=== PATIENT | male | born 1975 | race Caucasian/White ===

== ENCOUNTER 2016-10-15 09:38 | Emergency (ER) | payer MEDICARE ==
[2016-10-15 10:16] LABS: ABSOLUTE BASOPHILS # (AUTO) 0.1 10^3/uL (0.0-0.2); ABSOLUTE EOSINOPHILS # (AUTO) 0.3 10^3/uL (0.0-0.6); ABSOLUTE LYMPHOCYTES (AUTO) 0.9 10^3/uL (0.5-4.7); ABSOLUTE MONOCYTES (AUTO) 1.5 10^3/uL (0.1-1.4); ABSOLUTE NEUT (AUTO) 7.7 10^3/uL (1.7-8.2); BASOPHILS % (AUTO) 0.6 % (0-2); EOSINOPHILS % (AUTO) 2.4 % (0-6); HEMATOCRIT 41.7 % (37.9-51.0); HEMOGLOBIN 14.1 g/dL (13.5-17.0); HGB HCT DIFFERENCE 0.6; LYMPHOCYTES % (AUTO) 8.9 % (13-45); MEAN CORPUSCULAR HEMOGLOBIN 28.1 pg (27.0-33.4); MEAN CORPUSCULAR HGB CONC 33.7 g/dL (32.0-36.0); MEAN CORPUSCULAR VOLUME 83 fl (80-97); MONOCYTES % (AUTO) 14.3 % (3-13); RED CELL DISTRIBUTION WIDTH 16.4 % (11.5-14.0); SEGMENTED NEUTROPHILS % (AUTO) 73.8 % (42-78); WHITE BLOOD COUNT 10.5 10^3/uL (4.0-10.5)
[2016-10-15 10:18] LABS: VENOUS BLOOD BASE EXCESS 0.8 mmol/L; VENOUS BLOOD HCO3 25.3 mmol/L (20-32); VENOUS BLOOD PCO2 40.3 mmHg (35-63); VENOUS BLOOD PH 7.42 (7.30-7.42)
[2016-10-15 10:25] LABS: ALANINE AMINOTRANSFERASE 40 U/L (21-72); ALBUMIN 3.7 g/dL (3.5-5.0); ALKALINE PHOSPHATASE 118 U/L (38-126); ANION GAP 16 (5-19); ASPARTATE AMINO TRANSFERASE 22 U/L (17-59); BILIRUBIN,DIRECT 0.2 mg/dL (0.0-0.4); BILIRUBIN,TOTAL 0.7 mg/dL (0.2-1.3); BLOOD UREA NITROGEN 18 mg/dL (7-20); CARBON DIOXIDE 22 mmol/L (22-30); CHLORIDE 106 mmol/L (98-107); CREATININE RESULT 0.56 mg/dL (0.52-1.25); GLUCOSE 95 mg/dL (75-110); POTASSIUM 4.2 mmol/L (3.6-5.0); SODIUM 144.3 mmol/L (137-145); TOTAL PROTEIN 6.4 g/dL (6.3-8.2)
--- NOTE | 2016-10-15 11:26 | ER Document Report ---
ED General - General Chief Complaint: Respiratory Distress Stated Complaint: RESPIRATORY DISTRESS Mode of Arrival: Ambulatory Information source: Patient Notes: 41-year-old male trached presents with complaints of family with rest her distress to fever thick sputum from trach. Patient has had multiple similar episodes in past was admitted last week with similar complaints. notes that after one breathing treatment patient looks much better is in no distress at this time TRAVEL OUTSIDE OF THE [place] IN LAST 30 DAYS: No - HPI Onset: Just prior to arrival Onset/Duration: Sudden Quality of pain: No pain Severity: Mild Pain Level: Denies Associated symptoms: Productive cough, Fever Exacerbated by: Denies Relieved by: Denies Similar symptoms previously: Yes Recently seen / treated by doctor: Yes - Related Data Allergies/Adverse Reactions: ceftazidime pentahydrate [From Fortaz] Allergy (Intermediate, Verified 09/25/16 01:10) Exanthematic Eruption prednisone Allergy (Mild, Verified 09/26/16 14:52) Generalized rash Penicillins Allergy (Verified 09/25/16 01:10) phenytoin sodium extended [From Dilantin] Allergy (Verified 09/25/16 01:10) Past Medical History - Social History Smoking Status: Never Smoker Cigarette use (# per day): No Chew tobacco use (# tins/day): No Smoking Education Provided: No Family History: Reviewed & Not Pertinent Pulmonary Medical History: Reports: Hx Pneumonia Neurological Medical History: Reports: Hx Seizures Psychiatric Medical History: Denies: Hx Depression Traumatic Medical History: Reports: Hx Traumatic Brain Injury Past Surgical History: Reports: Hx Abdominal Surgery - G-tube, Other - Trach - Immunizations Hx Diphtheria, Pertussis, Tetanus Vaccination: Yes Hx Pneumococcal Vaccination: 07/18/13 Review of Systems - Review of Systems Notes: REVIEW OF SYSTEMS: Per family CONSTITUTIONAL : Admits recent illness admits fever EENT: Denies eye, ear, throat, or mouth pain or symptoms. Denies nasal or sinus congestion or discharge. Denies throat, tongue, or mouth swelling or difficulty swallowing. CARDIOVASCULAR: Denies chest pain. Denies palpitations or racing or irregular heart beat. Denies ankle edema. RESPIRATORY: Admits to difficulty breathing thick sputum from trach GASTROINTESTINAL: Denies abdominal pain or distention. Denies nausea, vomiting , or diarrhea. Denies blood in vomitus, stools, or per rectum. Denies black, tarry stools. Denies constipation. GENITOURINARY: Denies difficulty urinating, painful urination, burning, frequency, blood in urine, or discharge. MUSCULOSKELETAL: Denies back or neck pain or stiffness. Denies joint pain or swelling. SKIN: Denies rash, lesions or sores. HEMATOLOGIC : Denies easy bruising or bleeding. LYMPHATIC: Denies swollen, enlarged glands. NEUROLOGICAL: Denies confusion or altered mental status. Denies passing out or loss of consciousness. Denies dizziness or lightheadedness. Denies headache. Denies weakness or paralysis or loss of use of either side. Denies problems with gait or speech. Denies sensory loss, numbness, or tingling. Denies seizures. PSYCHIATRIC: Denies anxiety or stress. Denies depression, suicidal ideation, or homicidal ideation. ALL OTHER SYSTEMS REVIEWED AND NEGATIVE. Dictation was performed using [employer] voice recognition software PHYSICAL EXAMINATION: GENERAL: Baseline appearance febrile HEAD: Atraumatic, normocephalic. EYES: Pupils equal round and reactive to light, extraocular movements intact, sclera anicteric, conjunctiva are normal. ENT: Nares patent, oropharynx clear without exudates. Moist mucous membranes. NECK: Normal range of motion, supple without lymphadenopathy LUNGS: Trachea in place coarse expiratory wheezing all throughout HEART: Regular rate and rhythm without murmurs ABDOMEN: Soft, nontender, nondistended abdomen. No guarding, no rebound. No masses appreciated. Musculoskeletal: Normal range of motion, no pitting or edema. No cyanosis. NEUROLOGICAL: Baseline neurological function PSYCH: Baseline the fact SKIN: Warm, Dry, normal turgor, no rashes or lesions noted. Physical Exam - Vital signs Vitals: Resp Pulse Ox 21 H 96 10/15/16 09:43 10/15/16 09:43 Course - Re-evaluation Re-evalutation: 10/15/16 11:25 Patient is noted to be febrile, I have asked respiratory to evaluate his trach. Lab work imaging are pending to rule out pneumonia 10/15/16 12:17 X-ray noted no acute abnormality, sputum cultures pending. Otherwise patient looks well family's very happy with discharge. I will discharge home with antibiotics given the fever After performing a Medical Screening Examination, I estimate there is LOW risk for ACUTE CORONARY SYNDROME, RESPIRATORY FAILURE, SEPSIS OR MENINGITIS, thus I consider the discharge disposition reasonable. The patient and I have discussed the diagnosis and risks, and we agree with discharging home with close follow-up. We also discussed returning to the Emergency Department immediately if new or worsening symptoms occur. We have discussed the symptoms which are most concerning (e.g., changing or worsening pain, trouble swallowing or breathing, neck stiffness, fever) that necessitate immediate return. - Vital Signs Vital signs: Temp Pulse Resp BP Pulse Ox 101.1 F H 25 H 102/72 96 10/15/16 10:08 10/15/16 10:01 10/15/16 10:00 10/15/16 10:01 - Laboratory Result Diagrams: 10/15/16 09:55 10/15/16 09:55 Laboratory results interpreted by me: 10/15/16 09:55 RDW 16.4 H Plt Count 132 L Lymphocytes % 8.9 L Monocytes % 14.3 H Absolute Monocytes 1.5 H - Diagnostic Test Radiology reviewed: Image reviewed, Reports reviewed Discharge - Discharge Clinical Impression: Acute tracheobronchitis Condition: Stable Disposition: HOME, SELF-CARE Additional Instructions: Sputum cultures are pending, return immediately if there is any worsening symptoms or any other concerns Prescriptions: Levofloxacin [Levaquin 750 mg Tablet] 750 mg PO DAILY #10 tablet
[2016-10-15 13:50] VITALS: BP 84/65
--- NOTE | 2016-10-15 21:59 | EKG REPORT ---
SEVERITY:- BORDERLINE ECG - SINUS RHYTHM BORDERLINE T ABNORMALITIES, INFERIOR LEADS : Confirmed by: Domitila Turpin 15-Oct-2016 21:59:02
== END 2016-10-15 13:50 | disposition home or self-care (01) ==
LOC: ER 09:38
DX: J20.9 Acute bronchitis, unspecified (principal); Z93.0 Tracheostomy status; R50.9 Fever, unspecified; R05 Cough; R06.00 Dyspnea, unspecified; Z88.1 Allergy status to other antibiotic agents; Z88.8 Allergy status to other drugs, medicaments and biological substances; Z88.0 Allergy status to penicillin; Z87.01 Personal history of pneumonia (recurrent)
CPT/HCPCS: 36415; 71010; 80053; 82803; 83605; 85025; 87040; 87070; 87205; 93005; 93010; 99285

== ENCOUNTER → 2016-12-23 | Outpatient (CLI) | payer MEDICARE, MEDICAID ==
[2016-12-23 13:05] LABS: ABSOLUTE BASOPHILS # (AUTO) 0.1 10^3/uL (0.0-0.2); ABSOLUTE EOSINOPHILS # (AUTO) 0.4 10^3/uL (0.0-0.6); ABSOLUTE LYMPHOCYTES (AUTO) 2.9 10^3/uL (0.5-4.7); ABSOLUTE MONOCYTES (AUTO) 0.9 10^3/uL (0.1-1.4); ABSOLUTE NEUT (AUTO) 6.1 10^3/uL (1.7-8.2); BASOPHILS % (AUTO) 0.9 % (0-2); EOSINOPHILS % (AUTO) 3.5 % (0-6); HEMATOCRIT 44.6 % (37.9-51.0); HEMOGLOBIN 14.6 g/dL (13.5-17.0); HGB HCT DIFFERENCE -0.8; LYMPHOCYTES % (AUTO) 27.7 % (13-45); MEAN CORPUSCULAR HEMOGLOBIN 28.7 pg (27.0-33.4); MEAN CORPUSCULAR HGB CONC 32.8 g/dL (32.0-36.0); MEAN CORPUSCULAR VOLUME 87 fl (80-97); MONOCYTES % (AUTO) 9.2 % (3-13); RED CELL DISTRIBUTION WIDTH 15.6 % (11.5-14.0); SEGMENTED NEUTROPHILS % (AUTO) 58.7 % (42-78); WHITE BLOOD COUNT 10.3 10^3/uL (4.0-10.5)
[2016-12-23 13:09] LABS: ALANINE AMINOTRANSFERASE 52 U/L (21-72); ALBUMIN 3.6 g/dL (3.5-5.0); ALKALINE PHOSPHATASE 117 U/L (38-126); ASPARTATE AMINO TRANSFERASE 29 U/L (17-59); BILIRUBIN,DIRECT 0.3 mg/dL (0.0-0.4); BILIRUBIN,TOTAL 0.5 mg/dL (0.2-1.3); TOTAL PROTEIN 6.8 g/dL (6.3-8.2)
== END ==
LOC: LAB 12:29
PROVIDERS: ATTEND Family Medicine
DX: G40.909 Epilepsy, unspecified, not intractable, without status epilepticus (principal); J96.00 Acute respiratory failure, unspecified whether with hypoxia or hypercapnia; E87.6 Hypokalemia; Z79.899 Other long term (current) drug therapy
CPT/HCPCS: 36415; 80076; 85025

== ENCOUNTER 2017-01-11 21:38 | Emergency (ER) | payer MEDICARE, MEDICAID ==
--- NOTE | 2017-01-11 21:49 | ER Document Report ---
ED GI/ - General Stated Complaint: G TUBE COMPLICATIONS Time Seen by Provider: 01/11/17 21:48 Mode of Arrival: Stretcher Information source: Relative TRAVEL OUTSIDE OF THE [place] IN LAST 30 DAYS: No - HPI Patient complains to provider of: Feeding tube problem Onset: Just prior to arrival Timing/Duration: Sudden Notes: 01/11/17 22:29 41-year-old male with a history of anoxic brain injury who resides in a retirement, he was sent to the emergency room via EMS for displacement of his gastrostomy tube which he has had for several years, he is accompanied by his who reports that there are no other concerns at this time - Related Data Allergies/Adverse Reactions: ceftazidime pentahydrate [From Fortaz] Allergy (Intermediate, Verified 09/25/16 01:10) Exanthematic Eruption prednisone Allergy (Mild, Verified 09/26/16 14:52) Generalized rash Penicillins Allergy (Verified 09/25/16 01:10) phenytoin sodium extended [From Dilantin] Allergy (Verified 09/25/16 01:10) Past Medical History - General Information source: Relative, Transfer Record - Social History Smoking Status: Unknown if Ever Smoked Family History: Reviewed & Not Pertinent Pulmonary Medical History: Reports: Hx Pneumonia Neurological Medical History: Reports: Hx Seizures Psychiatric Medical History: Denies: Hx Depression Traumatic Medical History: Reports: Hx Traumatic Brain Injury Past Surgical History: Reports: Hx Abdominal Surgery - G-tube, Other - Trach - Immunizations Hx Diphtheria, Pertussis, Tetanus Vaccination: Yes Hx Pneumococcal Vaccination: 07/18/13 Review of Systems - Review of Systems Constitutional: No symptoms reported EENT: No symptoms reported Cardiovascular: No symptoms reported Respiratory: No symptoms reported Gastrointestinal: See HPI Genitourinary: No symptoms reported Male Genitourinary: No symptoms reported Musculoskeletal: No symptoms reported Skin: No symptoms reported Hematologic/Lymphatic: No symptoms reported Neurological/Psychological: No symptoms reported -: Yes All other systems reviewed and negative Physical Exam - Notes Notes: - General General appearance: Appears well, Alert In distress: None - HEENT Head: Normocephalic, Atraumatic Eyes: Normal Conjunctiva: Normal Extraocular movements intact: Yes Eyelashes: Normal Pupils: PERRL - Respiratory Respiratory status: No respiratory distress - Cardiovascular Rhythm: Regular - Abdominal Inspection: Gastrostomy stoma and left upper abdomen with no gastrostomy tube in place - Back Back: Normal - Extremities General upper extremity: Normal inspection General lower extremity: Normal inspection - Neurological Neuro grossly intact: Yes Orientation: AAOx4 Marcela Coma Scale Eye Opening: Spontaneous Marcela Coma Scale Verbal: Oriented [place] Coma Scale Motor: Obeys Commands [place] Coma Scale Total: 15 - Psychological Associated symptoms: Normal affect, Normal mood - Skin Skin Temperature: Warm Skin Moisture: Dry Skin Color: Normal Course - Re-evaluation Re-evalutation: 01/11/17 22:30 16 Estonian gastrostomy tube was placed in open stoma without difficulty, patient was discharged back to the retirement without further incident Procedures - Additional Procedures Gastric tube replacement Time performed: 22:31 Additional Procedures: Gastric tube replacement - 16 [place]ian gastric tube replaced without difficulty Discharge - Discharge Clinical Impression: Gastrostomy tube dysfunction Condition: Stable Disposition: HOME, SELF-CARE Instructions: Transdermal Gastric Tube Placement ([facility]) Additional Instructions: Follow up with your primary care provider in one to 2 days. Return to the emergency room immediately if symptoms worsen or any additional concerns. Referrals: SHANTI ROA MD [Primary Care Provider] - Follow up as needed
== END 2017-01-11 22:05 | disposition home or self-care (01) ==
LOC: ER 21:38
PROC: 0D20XYZ Change Other Device in Upper Intestinal Tract, External Approach (ICD-10-PCS; principal; 2017-01-11)
DX: K94.23 Gastrostomy malfunction (principal); Z88.0 Allergy status to penicillin
CPT/HCPCS: 99283

== ENCOUNTER 2018-01-14 17:51 | Emergency (ER) | payer MEDICARE, MEDICAID ==
[2018-01-14] MEDS ORDERED: NORMAL SALINE 1000 ML 1,000 ML IV ONE (18:28)
[2018-01-14] MEDS ORDERED: CEFEPIME 2 GM/D5W RTU 2 GM/50 ML RTUPB IV ONE (18:34)
[2018-01-14] MEDS ORDERED: VANCOMYCIN HCL INJ 1000 MG VIAL IV ONE (18:34)
--- NOTE | 2018-01-14 18:48 | RADIOLOGY REPORT (SQ) ---
EXAM DESCRIPTION: CHEST SINGLE VIEW COMPLETED DATE/TIME: 01/14/2018 6:39 pm REASON FOR STUDY: eval pneumonia COMPARISON: 10/15/2016 EXAM PARAMETERS: NUMBER OF VIEWS: One view. TECHNIQUE: Single frontal radiographic view of the chest acquired. RADIATION DOSE: NA LIMITATIONS: None. FINDINGS: LUNGS AND PLEURA: Low lung volumes results in bronchovascular crowding. No focal consolid ation, pneumothorax, or pleural effusion. MEDIASTINUM AND HILAR STRUCTURES: No masses. Contour normal. HEART AND VASCULAR STRUCTURES: Stable mild cardiomegaly. Normal vasculature. BONES: No acute findings. HARDWARE: A tracheostomy sheath projects in the midline over the tracheal air shadow. OTHER: No other significant finding. IMPRESSION: NO ACUTE RADIOGRAPHIC FINDING IN THE CHEST. TECHNICAL DOCUMENTATION: JOB ID: [id number] [employer]- All Rights Reserved Reading location - IP/workstation name: [email or web address]
[2018-01-14 19:24] LABS: VENOUS BLOOD BASE EXCESS 2.4 mmol/L; VENOUS BLOOD HCO3 28.7 mmol/L (20-32); VENOUS BLOOD PCO2 50.1 mmHg (35-63); VENOUS BLOOD PH 7.38 (7.30-7.42)
[2018-01-14 19:48] LABS: ALANINE AMINOTRANSFERASE 51 U/L (21-72); ALBUMIN 3.9 g/dL (3.5-5.0); ALKALINE PHOSPHATASE 111 U/L (38-126); ANION GAP 10 (5-19); ASPARTATE AMINO TRANSFERASE 38 U/L (17-59); BILIRUBIN,DIRECT 0.3 mg/dL (0.0-0.4); BILIRUBIN,TOTAL 0.5 mg/dL (0.2-1.3); BLOOD UREA NITROGEN 17 mg/dL (7-20); CALCIUM 9.2 mg/dL (8.4-10.2); CARBON DIOXIDE 27 mmol/L (22-30); CHLORIDE 107 mmol/L (98-107); GLUCOSE 75 mg/dL (75-110); POTASSIUM 4.5 mmol/L (3.6-5.0); SODIUM 144.4 mmol/L (137-145); TOTAL PROTEIN 7.7 g/dL (6.3-8.2)
[2018-01-14 20:07] LABS: ABSOLUTE BASOPHILS # (AUTO) 0.1 10^3/uL (0.0-0.2); ABSOLUTE EOSINOPHILS # (AUTO) 0.1 10^3/uL (0.0-0.6); ABSOLUTE LYMPHOCYTES (AUTO) 2.3 10^3/uL (0.5-4.7); ABSOLUTE MONOCYTES (AUTO) 0.9 10^3/uL (0.1-1.4); ABSOLUTE NEUT (AUTO) 6.5 10^3/uL (1.7-8.2); BASOPHILS % (AUTO) 0.6 % (0-2); EOSINOPHILS % (AUTO) 1.1 % (0-6); HEMATOCRIT 44.1 % (37.9-51.0); LYMPHOCYTES % (AUTO) 22.9 % (13-45); MEAN CORPUSCULAR HEMOGLOBIN 30.8 pg (27.0-33.4); MEAN CORPUSCULAR HGB CONC 34.1 g/dL (32.0-36.0); MEAN CORPUSCULAR VOLUME 90 fl (80-97); MONOCYTES % (AUTO) 9.5 % (3-13); PLATELET COUNT 168 10^3/uL (150-450); RED BLOOD COUNT 4.89 10^6/uL (4.35-5.55); RED CELL DISTRIBUTION WIDTH 14.4 % (11.5-14.0); SEGMENTED NEUTROPHILS % (AUTO) 65.9 % (42-78); TOTAL CELLS COUNTED % (AUTO) 100 %; WHITE BLOOD COUNT 9.9 10^3/uL (4.0-10.5)
[2018-01-14 20:17] LABS: ANION GAP 8 (5-19); BLOOD UREA NITROGEN 17 mg/dL (7-20); CALCIUM 8.9 mg/dL (8.4-10.2); CARBON DIOXIDE 29 mmol/L (22-30); CHLORIDE 107 mmol/L (98-107); GLUCOSE 78 mg/dL (75-110); POTASSIUM 4.3 mmol/L (3.6-5.0); SODIUM 143.6 mmol/L (137-145)
--- NOTE | 2018-01-14 21:03 | ER Document Report ---
ED General - General Chief Complaint: Fever Stated Complaint: FEVER Time Seen by Provider: 01/14/18 18:25 Cannot obtain history due to: Mentally challenged Notes: Patient is a 42 year old male with a history of traumatic brain injury as well as anoxic brain injury, trach dependent, G-tube dependent, resides in a nursing facility who presents with concerns of increased sputum production and a possible fever. The patient had a chest x-ray 4 days ago, was diagnosed as having a possible left basilar pneumonia, started on azithromycin. Apparently today the nursing staff is concerned about the amount of tracheal suctioning required and referred him to the emergency department. Family at the bedside states that "they ended sending him to the emergency department every time there is new nursing staff or if his was out of town". They state he otherwise appears at his baseline and they feel he overall looks quite well. The patient is unable to provide history secondary to his nonverbal status. TRAVEL OUTSIDE OF THE [place] IN LAST 30 DAYS: No - Related Data Allergies/Adverse Reactions: ceftazidime pentahydrate [From Fortaz] Allergy (Intermediate, Verified 09/25/16 01:10) Exanthematic Eruption prednisone Allergy (Mild, Verified 09/26/16 14:52) Generalized rash Penicillins Allergy (Verified 09/25/16 01:10) phenytoin sodium extended [From Dilantin] Allergy (Verified 09/25/16 01:10) Past Medical History - General Information source: Relative - Social History Smoking Status: Never Smoker Chew tobacco use (# tins/day): No Frequency of alcohol use: None Drug Abuse: None Lives with: Assisted Family History: Reviewed & Not Pertinent Patient has suicidal ideation: No Patient has homicidal ideation: No Pulmonary Medical History: Reports: Hx Pneumonia Neurological Medical History: Reports: Hx Seizures Renal/ Medical History: Denies: Hx Peritoneal Dialysis Psychiatric Medical History: Denies: Hx Depression Traumatic Medical History: Reports: Hx Traumatic Brain Injury Past Surgical History: Reports: Hx Abdominal Surgery - G-tube, Other - Trach - Immunizations Hx Diphtheria, Pertussis, Tetanus Vaccination: Yes Hx Pneumococcal Vaccination: 07/18/13 Review of Systems - Review of Systems -: Yes ROS unobtainable due to patient's medical condition Physical Exam - Vital signs Vitals: Temp Resp Pulse Ox 99.0 F 15 97 01/14/18 18:05 01/14/18 18:05 01/14/18 18:05 Interpretation: Normal Notes: PHYSICAL EXAMINATION: GENERAL: Chronically ill but in no distress. HEAD: Atraumatic, normocephalic. EYES: Pupils equal round and reactive to light, extraocular movements intact, sclera anicteric, conjunctiva are normal. ENT: Tracheostomy in place with a trach collar, Moist mucous membranes. NECK: supple without lymphadenopathy LUNGS: Breath sounds clear to auscultation bilaterally and equal. No wheezes rales or rhonchi. HEART: Regular rate and rhythm without murmurs ABDOMEN: Soft, normoactive bowel sounds. No guarding, no rebound. No masses appreciated. EXTREMITIES: Trace edema in the bilateral lower extremities that is equal and symmetric no cyanosis. NEUROLOGICAL: No apparent purposeful movement of the extremities. Patient does not respond to verbal stimuli. PSYCH: Nonverbal SKIN: Warm, Dry, normal turgor, no rashes or lesions noted. Course - Re-evaluation Re-evalutation: 01/14/18 21:00 Patient presents with halfway concerns that he is having increased tracheal secretions and was apparently diagnosed with a pneumonia in the left base 4 days ago. However on workup today the patient appears remarkably well given his baseline condition. Labs and chest x-ray are completely unremarkable today. He is saturating 100% on his normal oxygen trach collar. No distress. Moving air well. I do not see an indication to hospitalize the patient or provide any additional IV antibiotics given his well appearance and reassuring evaluation. Family at the bedside is in agreement with this plan. They state that each time his normal nurses are not taking care of him the new nursing staff tends to "freak out" and then send him to the emergency department. They agree that he looks completely fine and she returned to the nursing facility. - Vital Signs Vital signs: Temp Pulse Resp BP Pulse Ox 97.8 F 23 H 120/91 H 97 01/15/18 01:25 01/15/18 01:11 01/15/18 01:00 01/15/18 01:11 - Laboratory Result Diagrams: 01/14/18 19:02 01/14/18 19:02 Laboratory results interpreted by me: 01/14/18 19:02 RDW 14.4 H - Diagnostic Test Radiology reviewed: Image reviewed, Reports reviewed Radiology results interpreted by me: 01/14/18 21:02 Chest x-ray: No acute infiltrate or pneumothorax Discharge - Discharge Clinical Impression: Increased tracheal secretions, History of traumatic brain injury Pneumonia Qualifiers: Pneumonia type: due to unspecified organism Laterality: unspecified laterality Lung location: unspecified part of lung Qualified Code(s): J18.9 - Pneumonia, unspecified organism Disposition: HOME-SNF (ED ONLY) Additional Instructions: Please return patient to the emergency department for any additional concerns you may have. The workup today is completely normal chest x-ray does not show a pneumonia at this time. Referrals: NATALEE KING, DO [Primary Care Provider] - Follow up as needed
[2018-01-15 01:26] VITALS: BP 120/91
== END 2018-01-15 01:26 ==
LOC: ER 17:51
DX: J18.9 Pneumonia, unspecified organism (principal); G93.1 Anoxic brain damage, not elsewhere classified; Z93.0 Tracheostomy status; Z93.1 Gastrostomy status; R60.0 Localized edema; Z88.8 Allergy status to other drugs, medicaments and biological substances; Z88.0 Allergy status to penicillin; Z88.1 Allergy status to other antibiotic agents
CPT/HCPCS: 99285; 96365; 96367; 36415; 87040; 85025; 80048; 80053; 82803; 83605; 71045; J7030; J3370; J0692

== ENCOUNTER 2018-04-12 10:35 | Inpatient (IN) | payer MEDICARE, MEDICAID ==
--- NOTE | 2018-04-12 11:26 | RADIOLOGY REPORT (SQ) ---
EXAM DESCRIPTION: CHEST SINGLE VIEW COMPLETED DATE/TIME: 04/12/2018 11:17 am REASON FOR STUDY: wheezing COMPARISON: 01/14/2018 EXAM PARAMETERS: NUMBER OF VIEWS: One view. TECHNIQUE: Single frontal radiographic view of the chest acquired. RADIATION DOSE: NA LIMITATIONS: Patient is slightly rotated on the current study. FINDINGS: LUNGS AND PLEURA: No opacities, masses or pneumothorax. No pleural effusion. MEDIASTINUM AND HILAR STRUCTURES: No masses. Contour normal. HEART AND VASCULAR STRUCTURES: The configuration of the heart mediastinal structures is unchanged. BONES: No acute findings. HARDWARE: Tracheostomy tube is unchanged in position OTHER: No other significant finding. IMPRESSION: No significant interval change. No acute findings. Other findings as noted above TECHNICAL DOCUMENTATION: JOB ID: [id number] [employer]- All Rights Reserved Reading location - IP/workstation name: [email or web address]
--- NOTE | 2018-04-12 11:32 | ER Document Report ---
ED General - General Chief Complaint: Wound Infection Stated Complaint: POSSIBLE INFECTION Time Seen by Provider: 04/12/18 10:42 Mode of Arrival: Medic Information source: Outside Facility Records Notes: 42-year-old male with anoxic brain injury brought to the emergency department from outside facility for erythema to the face, neck, anterior proximal left shoulder. Patient is not communicative. History obtained from nursing facility. Symptoms started 1 day prior to arrival. Patient does have a tracheostomy in place. This was placed 4 years ago. Patient has had a temperature of 99F per nursing facility. TRAVEL OUTSIDE OF THE [place] IN LAST 30 DAYS: No - HPI Onset: Yesterday Onset/Duration: Gradual Associated symptoms: None Similar symptoms previously: No Recently seen / treated by doctor: No - Related Data Allergies/Adverse Reactions: ceftazidime pentahydrate [From Fortaz] Allergy (Intermediate, Verified 04/12/18 10:40) Exanthematic Eruption prednisone Allergy (Mild, Verified 04/12/18 10:40) Generalized rash Penicillins Allergy (Verified 04/12/18 10:40) phenytoin sodium extended [From Dilantin] Allergy (Verified 04/12/18 10:40) Past Medical History - General Information source: Outside Facility Records Cannot obtain history due to: Altered mental status - Social History Smoking Status: Unknown if Ever Smoked Chew tobacco use (# tins/day): No Frequency of alcohol use: None Drug Abuse: None Family History: Reviewed & Not Pertinent Patient has suicidal ideation: No Patient has homicidal ideation: No Pulmonary Medical History: Reports: Hx Pneumonia Neurological Medical History: Reports: Hx Seizures Renal/ Medical History: Denies: Hx Peritoneal Dialysis Psychiatric Medical History: Denies: Hx Depression Traumatic Medical History: Reports: Hx Traumatic Brain Injury Past Surgical History: Reports: Hx Abdominal Surgery - G-tube, Other - Trach - Immunizations Hx Diphtheria, Pertussis, Tetanus Vaccination: Yes Hx Pneumococcal Vaccination: 07/18/13 Review of Systems - Review of Systems -: Yes ROS unobtainable due to patient's medical condition Physical Exam - Vital signs Vitals: Resp 15 04/12/18 11:01 PHYSICAL EXAMINATION: GENERAL: Well-appearing, well-nourished and in no acute distress. HEAD: Atraumatic. Patient has anoxic brain injury. Unresponsive. EYES: Pupils equal round and reactive to light, extraocular movements intact, sclera anicteric, conjunctiva are normal. ENT: Nares patent, oropharynx clear without exudates. Moist mucous membranes. NECK: Tracheostomy in place. No purulent material from site. LUNGS: wheezing noted bilaterally. HEART: Regular rate and rhythm without murmurs ABDOMEN: Soft, nontender, nondistended abdomen. No guarding, no rebound. No masses appreciated. Musculoskeletal: 2+ DP/PT pulses. NEUROLOGICAL: PERRLA. Corneal reflex intact. Gag reflex intact. Does not move extremities to painful stimuli. PSYCH: Normal mood, normal affect. SKIN: Warm, Dry, normal turgor, no rashes or lesions noted. Interpretation: Normal Course - Re-evaluation Re-evalutation: 04/12/18 11:32 EKG: Ventricular rate 67, NE interval 156, castration 82, QTc 410, normal sinus rhythm, no ischemic changes. EKG compared to previous done on 10/15/16. 04/12/18 14:39 Labs and imaging obtained. White blood cell count is within normal limits. Lactic acid is within normal limits. CT does not show an acute process. Patient has cellulitis of the face, neck, and L shoulder. With the cellulitis being so extensive I feel the patient needs observation and IV antibiotics. I started the patient on clindamycin to cover for MRSA. I discussed the results with the patient's . She feels comfortable with admission. Dr. Cline is agreeable with admitting the patient. - Vital Signs Vital signs: Temp Pulse Resp BP Pulse Ox 20 90/62 L 97 04/12/18 13:00 04/12/18 12:01 04/12/18 13:00 - Laboratory Result Diagrams: 04/12/18 12:00 04/12/18 12:00 Laboratory results interpreted by me: 04/12/18 12:00 Carbon Dioxide 32 H Discharge - Discharge Clinical Impression: Cellulitis, face, Cellulitis, neck, Cellulitis of shoulder Condition: Good Disposition: ADMITTED OBSERVATION Admitting Provider: Hospitalist Unit Admitted: Medical Floor Referrals: NATALEE KING DO [Primary Care Provider] - Follow up as needed
[2018-04-12] MEDS ORDERED: IPRATROPIUM/ALBUTEROL 0.5-2.5 MG/3 ML AMPUL NEB ONE (11:34)
[2018-04-12 12:20] LABS: ABSOLUTE EOSINOPHILS # (AUTO) 0.1 10^3/uL (0.0-0.6); ABSOLUTE LYMPHOCYTES (AUTO) 2.9 10^3/uL (0.5-4.7); ABSOLUTE MONOCYTES (AUTO) 0.9 10^3/uL (0.1-1.4); ABSOLUTE NEUT (AUTO) 5.1 10^3/uL (1.7-8.2); BASOPHILS % (AUTO) 0.5 % (0-2); EOSINOPHILS % (AUTO) 0.7 % (0-6); LYMPHOCYTES % (AUTO) 31.7 % (13-45); MEAN CORPUSCULAR HEMOGLOBIN 30.5 pg (27.0-33.4); MEAN CORPUSCULAR HGB CONC 34.1 g/dL (32.0-36.0); MEAN CORPUSCULAR VOLUME 90 fl (80-97); MONOCYTES % (AUTO) 10.3 % (3-13); PLATELET COUNT 166 10^3/uL (150-450); RED BLOOD COUNT 4.91 10^6/uL (4.35-5.55); RED CELL DISTRIBUTION WIDTH 13.7 % (11.5-14.0); SEGMENTED NEUTROPHILS % (AUTO) 56.8 % (42-78); TOTAL CELLS COUNTED % (AUTO) 100 %
[2018-04-12 12:26] LABS: ALANINE AMINOTRANSFERASE 33 U/L (21-72); ALBUMIN 3.9 g/dL (3.5-5.0); ALKALINE PHOSPHATASE 97 U/L (38-126); ANION GAP 5 (5-19); ASPARTATE AMINO TRANSFERASE 35 U/L (17-59); BILIRUBIN,DIRECT 0.4 mg/dL (0.0-0.4); BILIRUBIN,TOTAL 0.6 mg/dL (0.2-1.3); BLOOD UREA NITROGEN 14 mg/dL (7-20); CALCIUM 9.3 mg/dL (8.4-10.2); CARBON DIOXIDE 32 mmol/L (22-30); CHLORIDE 104 mmol/L (98-107); GLUCOSE 91 mg/dL (75-110); POTASSIUM 4.2 mmol/L (3.6-5.0); SODIUM 141.2 mmol/L (137-145); TOTAL PROTEIN 7.8 g/dL (6.3-8.2)
[2018-04-12] MEDS ORDERED: SODIUM CHLORIDE 3% FOR INHALATION 15 ML AMPUL NEB ONE (12:48)
--- NOTE | 2018-04-12 13:20 | RADIOLOGY REPORT (SQ) ---
EXAM DESCRIPTION: CT SOFT TISSUE NECK WITH COMPLETED DATE/TIME: 04/12/2018 12:40 pm REASON FOR STUDY: cellulitis to neck COMPARISON: CT brain 01/11/2011, 02/03/2014, 05/20/2015, 11/06/2015 TECHNIQUE: Post IV contrasted scanning from skull base through lung apices with review of bone, soft tissue and lung windows. Reconstructed coronal and sagittal MPR images reviewed. All images stored on PACS. All CT scanners at this facility use dose modulation, iterative reconstruction, and/or weight based d osing when appropriate to reduce radiation dose to as low as reasonably achievable (ALARA). [facility]: Dose Right [facility]: CareDose [facility]: Dose Right [facility]: Teradose 4D [facility]: [facility] CONTRAST TYPE AND DOSE: contrast/concentration: Isovue 350.00 mg/ml; Total Contrast Delivered: 75.0 ml; Total Saline Delivered: 55.0 ml RENAL FUNCTION: None required. The patient is less than 50 years old. RADIATION DOSE: CT Rad equipment meets quality standard of care and radiation dose reduction techniq ues were employed. CTDIvol: 16.8 mGy. DLP: 536 mGy-cm. . LIMITATIONS: None. FINDINGS: SKULL BASE: There is marked hydrocephalus with dilatation of the lateral 3rd and 4th ventr icles, similar compared to prior CT exams dating back to 2013. MAJOR SALIVARY GLANDS: No solid or cystic masses. No inflammatory changes. LYMPHADENOPATHY: No adenopathy. MUCOSAL MASSES OR ASYMMETRY: No mucosal masses or asymmetry. LARYNX/CORDS: Tracheostomy in good positioning, with the tip in the upper trachea. No fluid collecti on are abscess along the course of the tracheostomy. VASCULAR STRUCTURES: The major vessels are patent. LUNG APICES: Clear. BONES: Intact. THYROID: Normal size. No masses. PARANASAL SINUSES: Clear. OTHER: Air-fluid level in the esophagus likely from gastroesophageal reflux IMPRESSION: No acute findings. TECHNICAL DOCUMENTATION: JOB ID: [id number] Quality ID # [id number]: Final reports with documentation of one or more dose reduction techniques (e.g., Au tomated exposure control, adjustment of the mA and/or kV according to patient size, use of iterative reconstruction technique) 2010 [employer]- All Rights Reserved Reading location - IP/workstation name: [email or web address]
[2018-04-12] MEDS ORDERED: CLINDAMYCIN PHOSPHATE INJ 300 MG/2 ML SDV IV ONE (14:33)
[2018-04-12] MEDS ORDERED: ACETAMINOPHEN 325 MG TABLET PEG PRN (15:30)
[2018-04-12] MEDS ORDERED: MAG HYDROX/AL HYDROX/SIMETH SUSP 30 ML UDCUP PEG PRN (15:30)
[2018-04-12] MEDS ORDERED: IPRATROPIUM/ALBUTEROL 0.5-2.5 MG/3 ML AMPUL NEB PRN (15:30)
[2018-04-12] MEDS ORDERED: ONDANSETRON HCL INJ/PF 4 MG/2 ML SDV IV PRN (15:30)
[2018-04-12] MEDS ORDERED: NYSTATIN/TRIAMCIN CREAM 15 GM TOP PRN (15:41)
[2018-04-12] MEDS ORDERED: ACETAMINOPHEN SUSP 160 MG/5 ML ORAL SYRING GT PRN (15:41)
[2018-04-12 15:58] LABS: APPEARANCE,URINE SLIGHTLY-CLOUDY; BILIRUBIN,URINE NEGATIVE (NEGATIVE); COLOR,URINE YELLOW; GLUCOSE, URINE NEGATIVE (NEGATIVE); KETONES,URINE TRACE mg/dL (NEGATIVE); LEUKOCYTE ESTERASE,URINE NEGATIVE (NEGATIVE); NITRITE,URINE NEGATIVE (NEGATIVE); PROTEIN,URINE NEGATIVE (NEGATIVE)
[2018-04-12 15:59] LABS: URINE SPECIFIC GRAVITY > 1.060
[2018-04-12] MEDS ORDERED: ASCORBIC ACID GT SCH (18:00)
[2018-04-12] MEDS ORDERED: PROPRANOLOL HCL GT SCH (18:00)
[2018-04-12] MEDS ORDERED: LEVETIRACETAM ORAL SOLN 500 MG/5 ML UDCUP GT SCH (18:00)
[2018-04-12] MEDS: ALBUTEROL SULFATE 0.083% NEB 2.5 MG/3 ML AMPUL NEB SCH ×2 (19:06→19:55)
--- NOTE | 2018-04-12 19:33 | PDOC H&P ---
History of Present Illness Admission Date/PCP: 04/12/18 15:07 NATALEE KING DO Patient complains of: patient is an unfortunate 42-year-old gentleman who resides in a intermediate brought to the emergency room with erythema of the neck face and anterior proximal left shoulder. History of Present Illness: GEORGINA COLON is a 42 year old male This patient is an unfortunate 42-year-old gentleman who resides in a intermediate brought to the emergency room with erythema of the neck face and anterior proximal left shoulder. He was thought to have a possible cellulitis. Patient has anoxic brain injury from what appears to be hypoxic respiratory failure. Patient was involved in a football accident about 4 years ago and is basically being in this semi-vegetative state since then. He has a tracheostomy. By the time I actually saw him the redness has almost all resolved. Patient is of course unable to provide any information however his was present at the bedside and she reveals that the redness and indeed almost all resolved and is unsure what caused it. Patient did receive a dose of vancomycin in the ER. Past Medical History Pulmonary Medical History: Reports: Pneumonia Neurological Medical History: Reports: Seizures Psychiatric Medical History: Denies: Depression Traumatic Medical History: Reports: Traumatic Brain Injury Past Surgical History Past Surgical History: Reports: Other - Trach Social History Information Source: [facility] Records Smoking Status: Unknown if Ever Smoked Frequency of Alcohol Use: None Hx Recreational Drug Use: No Drugs: None Hx Prescription Drug Abuse: No - Advance Directive Resuscitation Status: Do Not Resuscitate Family History Family History: Reviewed & Not Pertinent Parental Family History Reviewed: No Children Family History Reviewed: No Sibling(s) Family History Reviewed.: Yes Medication/Allergy Home Medications: Acetaminophen [Tylenol Susp 160 mg/5 mL Oral Syring] 640 mg GT Q4HP PRN Albuterol Sulfate [Albuterol Sulfate 2.5mg/3 mL] 1 vial NEB Q6 04/12/18 Ascorbic Acid [Vitamin C] 5 ml GT BID 04/12/18 Baclofen [Baclofen 10 mg Tablet] 10 mg GT Q8 04/12/18 Guaifenesin [Robitussin Syrup 200 mg/10 ml Ud Cup] 30 ml GT Q6 04/12/18 Levetiracetam 10 ml GT BID 04/12/18 Modafinil [Provigil 100 mg Tablet] 100 mg GT BID 04/12/18 Nystatin/Triamcin [Nystatin-Triamcinolone Cream] 1 applic TOP DAILYP PRN Omeprazole 20 mg GT DAILY 04/12/18 Propranolol HCl 5 ml GT TID 04/12/18 Tetrahydrozoline HCl [Visine] 2 drop OU QID 04/12/18 Valproate Sodium [Depakene Syrup 250 mg/5 ml Udcup] 10 ml GT Q8 04/12/18 Clindamycin HCl 300 mg PEG Q8H #12 capsule 04/13/18 Allergies/Adverse Reactions: ceftazidime pentahydrate [From Fortaz] Allergy (Intermediate, Verified 04/12/18 10:40) Exanthematic Eruption prednisone Allergy (Mild, Verified 04/12/18 10:40) Generalized rash Penicillins Allergy (Verified 04/12/18 10:40) phenytoin sodium extended [From Dilantin] Allergy (Verified 04/12/18 10:40) Review of Systems ROS unobtainable: Due to endotracheal tube, Due to mental status Physical Exam Vital Signs: Temp Pulse Resp BP Pulse Ox 20 105/87 H 96 04/12/18 18:01 04/12/18 18:01 04/12/18 18:01 General appearance: PRESENT: no acute distress, well-developed, well-nourished Eye exam: PRESENT: PERRLA Neck exam: PRESENT: tracheostomy Respiratory exam: PRESENT: clear to auscultation rohan, decreased breath sounds, unlabored. ABSENT: rhonchi, stridor Cardiovascular exam: PRESENT: RRR. ABSENT: diastolic murmur, rubs, systolic murmur GI/Abdominal exam: PRESENT: other - PEG in place Rectal exam: PRESENT: deferred Neurological exam: PRESENT: altered, other - Patient is nonverbal and interactive. ABSENT: alert, awake, oriented to person, oriented to place, oriented to time, oriented to situation, CN II-XII grossly intact, motor sensory deficit Psychiatric exam: PRESENT: other - Unable to evaluate Results Laboratory Results: 04/12/18 15:45 Urine Color YELLOW Urine Appearance SLIGHTLY-CLOUDY Urine pH 6.0 Ur Specific [place] > 1.060 Urine Protein NEGATIVE Urine Glucose (UA) NEGATIVE Urine Ketones TRACE H Urine Blood NEGATIVE Urine Nitrite NEGATIVE Ur Leukocyte Esterase NEGATIVE Urine WBC (Auto) 0 Urine RBC (Auto) 2 Impressions: Chest X-Ray 04/12/18 11:03 IMPRESSION: No significant interval change. No acute findings. Other findings as noted above Soft Tissue Neck CT 04/12/18 11:10 IMPRESSION: No acute findings. Assessment & Plan - Diagnosis (1) Cellulitis, face Is this a current diagnosis for this admission?: Yes (2) Cellulitis, neck Is this a current diagnosis for this admission?: Yes (3) Acute on chronic respiratory failure with hypoxemia Is this a current diagnosis for this admission?: Yes (4) Decubitus ulcer of right buttock, stage 1 Is this a current diagnosis for this admission?: Yes (5) Gastrostomy tube in place Is this a current diagnosis for this admission?: Yes (6) History of traumatic brain injury Is this a current diagnosis for this admission?: Yes - Time Time Spent: 50 to 70 Minutes Medications reviewed and adjusted accordingly: Yes Anticipated discharge: SNF Within: within 48 hours - Inpatient Certification Based on my medical assessment, after consideration of the patient's comorbidities, presenting symptoms, or acuity I expect that the services needed warrant INPATIENT care.: Yes Medical Necessity: Significant Comorbidiites Make Outpatient Treatment Too Risky , Need for IV Antibiotics
--- NOTE | 2018-04-12 19:35 | EKG REPORT ---
SEVERITY:- NORMAL ECG - SINUS RHYTHM : Confirmed by: mAy Ko MD 12-Apr-2018 19:34:42
[2018-04-12] MEDS: GUAIFENESIN SYRP 200 MG/10 ML UDC GT SCH (21:32)
[2018-04-12] MEDS: MODAFINIL 100 MG TABLET GT SCH (21:32)
[2018-04-12] MEDS: BACLOFEN 10 MG TABLET GT SCH (21:32)
[2018-04-12] MEDS: CLINDAMYCIN 600 MG/D5W RTU 600 MG/50 ML RTUPB IV SCH (21:33)
[2018-04-12] MEDS: VALPROATE SODIUM SYRUP 250 MG/5 ML UDCUP GT SCH (21:33)
[2018-04-12] MEDS: FAMOTIDINE 20 MG TABLET PEG SCH (21:34)
[2018-04-12] MEDS: TETRAHYDROZOLINE HCL 0.05% OPH SOLN 15 ML OU SCH (21:34)
[2018-04-12] MEDS: LEVETIRACETAM ORAL SOLN 500 MG/5 ML UDCUP GT SCH (21:50)
[2018-04-13] MEDS: GUAIFENESIN SYRP 200 MG/10 ML UDC GT SCH ×3 (00:51→13:54)
[2018-04-13] MEDS: ALBUTEROL SULFATE 0.083% NEB 2.5 MG/3 ML AMPUL NEB SCH ×3 (03:10→13:47)
[2018-04-13] MEDS: CLINDAMYCIN 600 MG/D5W RTU 600 MG/50 ML RTUPB IV SCH ×2 (05:55→13:55)
[2018-04-13] MEDS: VALPROATE SODIUM SYRUP 250 MG/5 ML UDCUP GT SCH ×2 (05:56→13:55)
[2018-04-13] MEDS: BACLOFEN 10 MG TABLET GT SCH ×2 (06:03→13:54)
[2018-04-13 06:20] LABS: HEMATOCRIT 41.6 % (37.9-51.0); HEMOGLOBIN 14.5 g/dL (13.5-17.0); MEAN CORPUSCULAR HEMOGLOBIN 31.1 pg (27.0-33.4); MEAN CORPUSCULAR VOLUME 89 fl (80-97); PLATELET COUNT 156 10^3/uL (150-450); RED BLOOD COUNT 4.68 10^6/uL (4.35-5.55); RED CELL DISTRIBUTION WIDTH 14.1 % (11.5-14.0); WHITE BLOOD COUNT 7.3 10^3/uL (4.0-10.5)
[2018-04-13 06:42] LABS: ANION GAP 8 (5-19); BLOOD UREA NITROGEN 18 mg/dL (7-20); CALCIUM 9.2 mg/dL (8.4-10.2); CARBON DIOXIDE 28 mmol/L (22-30); CHLORIDE 105 mmol/L (98-107); GLUCOSE 84 mg/dL (75-110)
[2018-04-13] MEDS ORDERED: LANSOPRAZOLE 15 MG TAB.RAP.DR PEG SCH (10:00)
[2018-04-13] MEDS ORDERED: ENOXAPARIN SODIUM INJ 40 MG/0.4 ML DISP.SYRIN SUBCUT SCH (10:00)
[2018-04-13] MEDS: LEVETIRACETAM ORAL SOLN 500 MG/5 ML UDCUP GT SCH (10:01)
[2018-04-13] MEDS: FAMOTIDINE 20 MG TABLET PEG SCH (10:02)
[2018-04-13] MEDS: TETRAHYDROZOLINE HCL 0.05% OPH SOLN 15 ML OU SCH ×2 (10:02→13:55)
[2018-04-13] MEDS: MODAFINIL 100 MG TABLET GT SCH (10:10)
--- NOTE | 2018-04-13 10:31 | PDOC TRANSFER SUMMARY ---
General - Admit/Disc Date/PCP Admission Date/Primary Care Provider: 04/12/18 15:07 NATALEE KING DO Discharge Date: 04/13/18 - Discharge Diagnosis (1) Cellulitis, face Is this a current diagnosis for this admission?: Yes (2) Cellulitis, neck Is this a current diagnosis for this admission?: Yes (3) Acute on chronic respiratory failure with hypoxemia Is this a current diagnosis for this admission?: Yes (4) Decubitus ulcer of right buttock, stage 1 Is this a current diagnosis for this admission?: Yes (5) Gastrostomy tube in place Is this a current diagnosis for this admission?: Yes (6) History of traumatic brain injury Is this a current diagnosis for this admission?: Yes - Additional Information Resuscitation Status: Do Not Resuscitate Discharge Diet: Tube Feeding (Comments) Prescriptions: Clindamycin HCl 300 mg PEG Q8H #12 capsule Home Medications: Acetaminophen [Tylenol Susp 160 mg/5 mL Oral Syring] 640 mg GT Q4HP PRN Albuterol Sulfate [Albuterol Sulfate 2.5mg/3 mL] 1 vial NEB Q6 04/12/18 Ascorbic Acid [Vitamin C] 5 ml GT BID 04/12/18 Baclofen [Baclofen 10 mg Tablet] 10 mg GT Q8 04/12/18 Guaifenesin [Robitussin Syrup 200 mg/10 ml Ud Cup] 30 ml GT Q6 04/12/18 Levetiracetam 10 ml GT BID 04/12/18 Modafinil [Provigil 100 mg Tablet] 100 mg GT BID 04/12/18 Nystatin/Triamcin [Nystatin-Triamcinolone Cream] 1 applic TOP DAILYP PRN Omeprazole 20 mg GT DAILY 04/12/18 Propranolol HCl 5 ml GT TID 04/12/18 Tetrahydrozoline HCl [Visine] 2 drop OU QID 04/12/18 Valproate Sodium [Depakene Syrup 250 mg/5 ml Udcup] 10 ml GT Q8 04/12/18 Clindamycin HCl 300 mg PEG Q8H #12 capsule 04/13/18 History of Present Illness Admission Date/PCP: 04/12/18 15:07 NATALEE KIGN DO History of Present Illness: GEORGINA COLON is a 42 year old male This patient is an unfortunate 42-year-old gentleman who resides in a half-way brought to the emergency room with erythema of the neck face and anterior proximal left shoulder. He was thought to have a possible cellulitis. Patient has anoxic brain injury from what appears to be hypoxic respiratory failure. Patient was involved in a football accident about 4 years ago and is basically being in this semi-vegetative state since then. He has a tracheostomy. By the time I actually saw him the redness has almost all resolved. Patient is of course unable to provide any information however his was present at the bedside and she reveals that the redness and indeed almost all resolved and is unsure what caused it. Patient did receive a dose of vancomycin in the ER. Hospital Course Hospital Course: Patient was admitted for possible cellulitis and monitored overnight. At the time of my initial exam the erythema that he purportedly had had actually almost all disappeared however due to his high risk status he was monitored overnight. Patient has remained afebrile with resolution of the erythema. His white count has been normal and there has been no further evidence of infection. He did receive clindamycin while in hospital and will be given a short course of clindamycin but he is stable for discharge back to half-way Physical Exam Vital Signs: Temp Pulse Resp BP Pulse Ox 98.3 F 87 18 104/61 98 04/13/18 07:00 04/13/18 07:55 04/13/18 07:55 04/13/18 07:00 04/13/18 07:55 Intake & Output 04/12/18 04/13/18 04/14/18 06:59 06:59 06:59 Intake Total 50 Balance 50 Weight 114.1 kg General appearance: PRESENT: no acute distress, well-developed, well-nourished, other - vegetative status Mouth exam: PRESENT: moist Neck exam: PRESENT: tracheostomy Respiratory exam: PRESENT: clear to auscultation rohan, unlabored. ABSENT: tachypnea, wheezes Cardiovascular exam: PRESENT: RRR. ABSENT: diastolic murmur, rubs, systolic murmur GI/Abdominal exam: PRESENT: normal bowel sounds, soft, other - PEG Tube. ABSENT : distended, guarding, mass, organolmegaly, rebound, tenderness Rectal exam: PRESENT: deferred Extremities exam: PRESENT: full ROM. ABSENT: calf tenderness, clubbing, pedal edema Neurological exam: PRESENT: altered, motor sensory deficit, aphasic. ABSENT: oriented to person, oriented to place, oriented to time, oriented to situation, reflexes normal, CN II-XII grossly intact Psychiatric exam: PRESENT: other - unable to evaluate Skin exam: PRESENT: rash - mild erythema around anterior chest wall,, other - Stage 1 Decubitus ulcer R buttock present on admission Results Laboratory Results: 04/13/18 05:33 04/13/18 05:33 04/12/18 04/13/18 04/13/18 15:45 05:33 05:33 WBC 7.3 RBC 4.68 Hgb 14.5 Hct 41.6 MCV 89 MCH 31.1 MCHC 35.0 RDW 14.1 H Plt Count 156 Sodium 141.0 Potassium 4.0 Chloride 105 Carbon Dioxide 28 Anion Gap 8 BUN 18 Creatinine 0.56 Est GFR ( Amer) > 60 Est GFR (Non-Af Amer) > 60 Glucose 84 Calcium 9.2 Urine Color YELLOW Urine Appearance SLIGHTLY-CLOUDY Urine pH 6.0 Ur Specific [place] > 1.060 Urine Protein NEGATIVE Urine Glucose (UA) NEGATIVE Urine Ketones TRACE H Urine Blood NEGATIVE Urine Nitrite NEGATIVE Ur Leukocyte Esterase NEGATIVE Urine WBC (Auto) 0 Urine RBC (Auto) 2 Impressions: Chest X-Ray 04/12/18 11:03 IMPRESSION: No significant interval change. No acute findings. Other findings as noted above Soft Tissue Neck CT 04/12/18 11:10 IMPRESSION: No acute findings. Transfer Plan - Disposition Transfer Plan: [facility] Continue care as per pre-hospitalization - Time Spent with Patient Time spent with patient: Less than 30 Minutes Qualifiers - * PATIENT BEING DISCHARGED WITH ANY OF THE FOLLOWING DIAGNOSIS: No
[2018-04-13 16:50] VITALS: BP 92/64
== END 2018-04-13 17:10 | DRG 602 ==
LOC: ER 10:35 → OBSVTOIN 15:07 → EH 15:07 → 4S 18:57
PROVIDERS: ADMIT Internal Medicine; ATTEND Internal Medicine
PROC: 3E0F73Z Introduction of Anti-inflammatory into Respiratory Tract, Via Natural or Artificial Opening (ICD-10-PCS; principal; 2018-04-12)
DX: L03.211 Cellulitis of face (principal); J96.21 Acute and chronic respiratory failure with hypoxia; L03.221 Cellulitis of neck; L89.311 Pressure ulcer of right buttock, stage 1; Z66 Do not resuscitate; Z93.1 Gastrostomy status; Z93.0 Tracheostomy status; Z87.820 Personal history of traumatic brain injury; Z79.899 Other long term (current) drug therapy; Z88.1 Allergy status to other antibiotic agents; Z88.0 Allergy status to penicillin; Z88.8 Allergy status to other drugs, medicaments and biological substances
CPT/HCPCS: 36415; 70491; 71045; 80048; 80053; 81001; 83605; 85025; 85027; 87040; 87070; 87077; 87186; 87205; 93005; 93010; 94640; 96365; 99285; J1650; J3490; J7620

== ENCOUNTER 2018-12-11 08:13 | Emergency (ER) | payer MEDICARE, MEDICAID ==
[2018-12-11] MEDS ORDERED: LIDOCAINE 4%/TETRACAINE 0.5%/EPI 0.18% 5 ML TOPICAL SOLN TOP ONE (08:50)
--- NOTE | 2018-12-11 09:33 | ER Document Report ---
HPI - HPI Patient complains to provider of: G-tube displaced Time Seen by Provider: 12/11/18 08:18 Pain Level: Denies Context: Nursing note: Pt to ED via EMS for c/o Gtube falling out in the middle of the night, retirement staff attempted to reinsert Gtube and was unable to do so. 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 Pt has existing tracheotomy, pt breathing is even and unlabored. Upon assessment there is a small amount of bleeding from gtube site. Pt resting peacefully at this time. History obtained from nursing staff who obtained history from EMS. Patient is nonverbal. According to friends in the room with the patient his G-tube was placed 5 years ago. States it has come out multiple times since but they typically have no issues replacing it. - DERM Skin Color: Normal, Likely Past Medical History - General Information source: Emergency Med Personnel - Social History Smoking Status: Unknown if Ever Smoked Family History: Reviewed & Not Pertinent Patient has suicidal ideation: No Patient has homicidal ideation: No Pulmonary Medical History: Reports: Hx Pneumonia Neurological Medical History: Reports: Hx Seizures Renal/ Medical History: Denies: Hx Peritoneal Dialysis Psychiatric Medical History: Denies: Hx Depression Traumatic Medical History: Reports: Hx Traumatic Brain Injury Past Surgical History: Reports: Hx Abdominal Surgery - G-tube, Other - Trach - Immunizations Hx Diphtheria, Pertussis, Tetanus Vaccination: Yes Hx Pneumococcal Vaccination: 07/18/13 Vertical Provider Document - CONSTITUTIONAL Agree With Documented VS: Yes Notes: GENERAL: Alert, eyes open, no acute distress. HEAD: Normocephalic, atraumatic. EYES: Pupils equal, round, and reactive to light. ENT: Oral mucosa moist, tongue midline. NECK: Supple. Trach in place LUNGS: Clear to auscultation bilaterally, no wheezes, rales, or rhonchi. No respiratory distress. HEART: Regular rate and rhythm. No murmur ABDOMEN: Soft, non-tender. Non-distended. Bowel sounds present in all 4 quadrants. EXTREMITIES: Bilateral feet contracted, braces in place. Capillary refill less than 2 seconds distal lower extremities. Capillary refill less than 2 seconds bilateral upper extremities. NEUROLOGICAL: Eyes open, nonverbal, normal mentation per friends in room. (TBI pt) SKIN: Warm, dry, normal turgor. - INFECTION CONTROL TRAVEL OUTSIDE OF THE [place] IN LAST 30 DAYS: No Course - Re-evaluation Re-evalutation: According to nursing staff patient's typical G-tube size is a 16F. 16F not able to be placed due to resistance being noted. 12/11/18 09:27 14 F G-tube [address] Jeovanny Montes. no complications. G-tube was able to be flushed with gastric contents expelled. No complications. Patient tolerated well. Patient stable for discharge. - Vital Signs Vital signs: Temp Pulse Resp BP Pulse Ox 98.9 F 65 16 118/73 100 12/11/18 08:21 12/11/18 08:21 12/11/18 08:21 12/11/18 08:21 12/11/18 08:21 Discharge - Discharge Clinical Impression: Complication of gastrostomy tube Condition: Stable Disposition: HOME-SNF (ED ONLY) Additional Instructions: As we discussed Calvin has been seen and treated in the emergency department for removal of his G-tube. His G-tube has been replaced with a 14 Sinhala. Unfortunately a 16 Sinhala which we are told this is normal size was unable to be placed. Please have him follow-up with his primary care provider and gastroenterology for continued care. Referrals: NATALEE KING, DO [Primary Care Provider] - Follow up as needed
[2018-12-11 10:35] VITALS: BP 96/72
== END 2018-12-11 10:33 ==
LOC: ER 08:13
DX: K94.21 Gastrostomy hemorrhage (principal); Y83.3 Surgical operation with formation of external stoma as the cause of abnormal reaction of the patient, or of later complication, without mention of misadventure at the time of the procedure; G93.1 Anoxic brain damage, not elsewhere classified
CPT/HCPCS: 43762; 99282; J3490

== ENCOUNTER 2018-12-11 16:03 | Emergency (ER) | payer MEDICARE, MEDICAID ==
[2018-12-11] MEDS ORDERED: LIDOCAINE 4%/TETRACAINE 0.5%/EPI 0.18% 5 ML TOPICAL SOLN TOP ONE (16:09)
--- NOTE | 2018-12-11 17:09 | ER Document Report ---
HPI - HPI Patient complains to provider of: G-tube complications Time Seen by Provider: 12/11/18 16:07 Pain Level: 0 Context: Patient was seen in this facility earlier today by myself: Same information as below. Nursing staff tells EMS, EMS report given to nursing staff in the emergency room that the patient has somehow removed his G-tube again. Patient was recently discharged from this facility after G-tube insertion. Unsure how long G-tube has been displaced at this time. Nursing note: Pt to ED via EMS for c/o Gtube falling out in the middle of the night, [facility] staff attempted to reinsert Gtube and was unable to do so. 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 Pt has existing tracheotomy, pt breathing is even and unlabored. Upon assessment there is a small amount of bleeding from gtube site. Pt resting peacefully at this time. History obtained from nursing staff who obtained history from EMS. Patient is nonverbal. According to friends in the room with the patient his G-tube was placed 5 years ago. States it has come out multiple times since but they typically have no issues replacing it. - DERM Skin Color: Flushed Past Medical History - General Information source: Transfer Record, Emergency Med Personnel - Social History Smoking Status: Unknown if Ever Smoked Chew tobacco use (# tins/day): No Frequency of alcohol use: None Drug Abuse: None Family History: Reviewed & Not Pertinent Patient has suicidal ideation: No Patient has homicidal ideation: No Pulmonary Medical History: Reports: Hx Pneumonia Neurological Medical History: Reports: Hx Seizures Renal/ Medical History: Denies: Hx Peritoneal Dialysis Psychiatric Medical History: Denies: Hx Depression Traumatic Medical History: Reports: Hx Traumatic Brain Injury Past Surgical History: Reports: Hx Abdominal Surgery - G-tube/gastrostomy, Other - Trach - Immunizations Hx Diphtheria, Pertussis, Tetanus Vaccination: Yes Hx Pneumococcal Vaccination: 07/18/13 Vertical Provider Document - CONSTITUTIONAL Agree With Documented VS: Yes Notes: GENERAL: Alert, eyes open, no acute distress. HEAD: Normocephalic, atraumatic. EYES: Pupils equal, round, and reactive to light. ENT: Oral mucosa moist, tongue midline. NECK: Supple. Trach in place LUNGS: Clear to auscultation bilaterally, no wheezes, rales, or rhonchi. No respiratory distress. HEART: Regular rate and rhythm. No murmur ABDOMEN: Soft, non-tender. Non-distended. Bowel sounds present in all 4 quadrants. Obvious area where G-tube should be in the left mid abdomen, no surrounding erythema, mild blood noted. EXTREMITIES: Bilateral feet contracted, braces in place. Capillary refill less than 2 seconds distal lower extremities. Capillary refill less than 2 seconds bilateral upper extremities. NEUROLOGICAL: Eyes open, nonverbal, normal mentation per friends in room. (TBI pt) SKIN: Warm, dry, normal turgor. - INFECTION CONTROL TRAVEL OUTSIDE OF THE [place] IN LAST 30 DAYS: No Course - Re-evaluation Re-evalutation: 12/11/18 17:09 G-tube was replaced by myself, 14 [place] no complications. Was able to hear bowel sounds with insertion of sterile water and also have gastric contents expelled. Site dressed, patient stable for discharge. - Vital Signs Vital signs: Temp Pulse Resp BP Pulse Ox 99.5 F 68 20 124/78 95 12/11/18 16:06 12/11/18 16:06 12/11/18 16:06 12/11/18 16:06 12/11/18 16:06 Discharge - Discharge Clinical Impression: Complication of gastrostomy tube Condition: Stable Disposition: HOME-SNF (ED ONLY) Additional Instructions: Calvin has been seen in the emergency department for reinsertion of his G- tube. G-tube has been placed with no complications. Please make sure he follow-up with his primary care provider for continued care. Return to the emergency room for any concerns. Referrals: NATALEE KING, DO [Primary Care Provider] - Follow up as needed
[2018-12-11 17:51] VITALS: BP 129/75
== END 2018-12-11 17:55 ==
LOC: ER 16:03
DX: K94.21 Gastrostomy hemorrhage (principal); Y83.3 Surgical operation with formation of external stoma as the cause of abnormal reaction of the patient, or of later complication, without mention of misadventure at the time of the procedure; G93.1 Anoxic brain damage, not elsewhere classified
CPT/HCPCS: 99283; 43762; J3490

== ENCOUNTER 2019-01-26 18:05 | Emergency (ER) | payer MEDICARE, MEDICAID ==
--- NOTE | 2019-01-26 18:50 | ER Document Report ---
HPI - HPI Patient complains to provider of: G-tube complications Time Seen by Provider: 01/26/19 18:10 Context: History obtained from nursing staff who obtained history from EMS. Patient is nonverbal. Pt to ED via EMS for c/o Gtube falling out approximately 45 minutes prior to EMS notification, [facility] staff did not attempt to reinsert Gtube, just notified 911. 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 Pt has existing tracheotomy, pt breathing is even and unlabored. Upon assessment there is a small amount of bleeding from gtube site. Pt resting peacefully at this time. Past Medical History - General Information source: Emergency Med Personnel - Social History Smoking Status: Unknown if Ever Smoked Family History: Reviewed & Not Pertinent Pulmonary Medical History: Reports: Hx Pneumonia Neurological Medical History: Reports: Hx Seizures Renal/ Medical History: Denies: Hx Peritoneal Dialysis Psychiatric Medical History: Denies: Hx Depression Traumatic Medical History: Reports: Hx Traumatic Brain Injury Past Surgical History: Reports: Hx Abdominal Surgery - G-tube/gastrostomy, Other - Trach - Immunizations Hx Diphtheria, Pertussis, Tetanus Vaccination: Yes Hx Pneumococcal Vaccination: 07/18/13 Vertical Provider Document - CONSTITUTIONAL Agree With Documented VS: Yes Notes: GENERAL: Alert, eyes open, no acute distress. HEAD: Normocephalic, atraumatic. EYES: Pupils equal, round, and reactive to light. ENT: Oral mucosa moist, tongue midline. NECK: Supple. Trach in place LUNGS: Clear to auscultation bilaterally, no wheezes, rales, or rhonchi. No r espiratory distress. HEART: Regular rate and rhythm. No murmur ABDOMEN: Soft, non-tender. Non-distended. Bowel sounds present in all 4 quadrants. G-tube site minor bleeding noted, nonerythematous, no active discharge noted. EXTREMITIES: Bilateral feet contracted, Capillary refill less than 2 seconds distal lower extremities. Capillary refill less than 2 seconds bilateral upper extremities. NEUROLOGICAL: Eyes open, nonverbal, normal mentation per EMS. (TBI pt) SKIN: Warm, dry, normal turgor. - INFECTION CONTROL TRAVEL OUTSIDE OF THE [place] IN LAST 30 DAYS: No Course - Re-evaluation Re-evalutation: G-tube was placed successfully with no complications. KUB shows successful placement. Patient stable for transport back to facility. Discharge - Discharge Clinical Impression: Complication of gastrostomy tube Condition: Stable Disposition: HOME-SNF (ED ONLY) Additional Instructions: Calvin has been seen in the emergency department for removing his G-tube. He has been successfully placed and confirmed with imaging modality. Please make sure he follow-up with his primary care provider in the next 24 to 48 hours. Please return him to the emergency room for any concerns. Referrals: NATALEE KING, DO [Primary Care Provider] - Follow up as needed
--- NOTE | 2019-01-26 19:10 | RADIOLOGY REPORT (SQ) ---
EXAM DESCRIPTION: KUB/ABDOMEN (SINGLE VIEW) COMPLETED DATE/TIME: 01/26/2019 6:50 pm REASON FOR STUDY: gastro, confirmation of G-tube placement COMPARISON: None. NUMBER OF VIEWS: One view. TECHNIQUE: Supine radiographic image of the abdomen acquired. LIMITATIONS: None. FINDINGS: Syringe contrast injection to the G-tube shows contrast material in the distal aspect of t he stomach. Scattered bowel gas throughout the abdomen. OTHER: No other significant finding. IMPRESSION: Syringe contrast injection to the G-tube shows contrast material in the distal aspect of the stomach. TECHNICAL DOCUMENTATION: JOB ID: [id number] [place]-[id number] 2010 [employer]- All Rights Reserved Reading location - IP/workstation name: [email or web address]
[2019-01-26 21:57] VITALS: BP 118/76
== END 2019-01-26 21:30 ==
LOC: ER 18:05
DX: K94.21 Gastrostomy hemorrhage (principal); Y83.3 Surgical operation with formation of external stoma as the cause of abnormal reaction of the patient, or of later complication, without mention of misadventure at the time of the procedure; Y92.129 Unspecified place in nursing home as the place of occurrence of the external cause; G93.1 Anoxic brain damage, not elsewhere classified
CPT/HCPCS: 74018; 99284

== ENCOUNTER 2019-02-27 22:48 | Emergency (ER) | payer MEDICARE, MEDICAID ==
--- NOTE | 2019-02-28 03:12 | RADIOLOGY REPORT (SQ) ---
XR ABDOMEN 1 VIEW (KUB) EXAM DATE: 02/28/2019 1:46 AM CDT HISTORY: Confirm gastrostomy tube placement. COMPARISON: 01/26/2019 FINDINGS: There is a nonobstructive bowel gas pattern. No radiopaque urinary stones are seen. The bones are intact. There is contrast opacifying the stomach and proximal small bowel. IMPRESSION: Contrast opacifies the stomach and proximal small bowel.
--- NOTE | 2019-02-28 03:45 | ER Document Report ---
HPI - HPI Patient complains to provider of: G-tube displacement Time Seen by Provider: 02/28/19 00:54 Pain Level: 0 Context: History obtained from nursing staff who obtained history from EMS. Patient is nonverbal. Pt to ED via EMS for c/o Gtube falling out immediately prior to arrival to EMS notification, longterm staff did not attempt to reinsert Gtube, just notified 911. 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 Pt has existing tracheotomy, pt breathing is even and unlabored. Upon assessment there is a small amount of bleeding from gtube site. Pt resting peacefully at this time. Past Medical History - General Information source: Emergency Med Personnel, [facility] Records - Social History Smoking Status: Never Smoker Family History: Reviewed & Not Pertinent Patient has suicidal ideation: No Patient has homicidal ideation: No Pulmonary Medical History: Reports: Hx Pneumonia Neurological Medical History: Reports: Hx Seizures Renal/ Medical History: Denies: Hx Peritoneal Dialysis Psychiatric Medical History: Denies: Hx Depression Traumatic Medical History: Reports: Hx Traumatic Brain Injury Past Surgical History: Reports: Hx Abdominal Surgery - G-tube/gastrostomy, Other - Trach - Immunizations Hx Diphtheria, Pertussis, Tetanus Vaccination: Yes Hx Pneumococcal Vaccination: 07/18/13 Vertical Provider Document - CONSTITUTIONAL Agree With Documented VS: Yes Notes: GENERAL: Alert, eyes open, no acute distress. HEAD: Normocephalic, atraumatic. EYES: Pupils equal, round, and reactive to light. ENT: Oral mucosa moist, tongue midline. NECK: Supple. Trach in place LUNGS: Clear to auscultation bilaterally, no wheezes, rales, or rhonchi. No respiratory distress. HEART: Regular rate and rhythm. No murmur ABDOMEN: Soft, non-tender. Non-distended. Bowel sounds present in all 4 quadrants. G-tube site minor bleeding noted, nonerythematous, no active discharge noted. EXTREMITIES: Bilateral feet contracted, Capillary refill less than 2 seconds distal lower extremities. Capillary refill less than 2 seconds bilateral upper extremities. NEUROLOGICAL: Eyes open, nonverbal, normal mentation per EMS. (TBI pt) SKIN: Warm, dry, normal turgor. - INFECTION CONTROL TRAVEL OUTSIDE OF THE [place] IN LAST 30 DAYS: No Course - Re-evaluation Re-evalutation: KUB X-Ray 02/28/19 01:46 IMPRESSION: Contrast opacifies the stomach and proximal small bowel. G-tube replaced with a 14 [place] no complications. KUB confirms. Patient stable for transfer back to facility. - Vital Signs Vital signs: Temp Pulse Resp BP Pulse Ox 18 97/66 L 99 02/28/19 02:04 02/28/19 02:04 02/28/19 02:04 Discharge - Discharge Clinical Impression: Complication of gastrostomy tube Condition: Stable Disposition: HOME-SNF (ED ONLY) Additional Instructions: Calvin has been seen and treated in the emergency department for G-tube removal. G-tube has been replaced with no complications. X-rays have confirmed its placement. Please have him follow-up with his primary care provider and potentially surgeon who placed the G-tube for any further complications. Referrals: NATALEE KING DO [Primary Care Provider] - Follow up as needed
[2019-02-28 04:37] VITALS: BP 103/63
== END 2019-02-28 04:37 ==
LOC: ER 22:48
DX: K94.20 Gastrostomy complication, unspecified (principal); Y83.3 Surgical operation with formation of external stoma as the cause of abnormal reaction of the patient, or of later complication, without mention of misadventure at the time of the procedure; G93.1 Anoxic brain damage, not elsewhere classified
CPT/HCPCS: 74018; 99284

== ENCOUNTER → 2020-03-05 | Outpatient (CLI) | payer MEDICARE, MEDICAID | LOC: PNR 11:09 | PROVIDERS: ATTEND Family Medicine | DX: R94.6 Abnormal results of thyroid function studies (principal) | CPT/HCPCS: 84436; 84443 ==